=== PATIENT | female | born 2000 | race Caucasian/White ===

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

== ENCOUNTER 2020-01-26 04:28 | Inpatient (IN) | payer MEDICAID ==
[2020-01-26] MEDS ORDERED: Oxytocin/0.9 % Sodium Chloride 30 UNIT/500 ML BAG ONE (23:14)
[2020-01-26] MEDS ORDERED: Lidocaine 1% 50 ML MDV ONE (23:21)
--- NOTE | 2020-01-27 01:17 | HP ---
DATE OF : 2000 PRIMARY CARE PHYSICIAN: None PCP CHIEF COMPLAINT: Labor. HISTORY: This is a 19-year-old female. She is G1, P0. She is reportedly 38-5/7 weeks' gestation. She has had no medical care during the . She has seen a terrazzo layer helper at home. She has not had an obstetric ultrasound during the . She had spontaneous rupture of membranes at 11 p.m. on 01/25/2020. By 5 p.m. on 01/26/2020, she was 4 cm dilated and by 7 p.m. 6 cm dilated and began pushing at approximately 9:30. At 10:15 p.m., the lay person who was assisting with her care noted the baby's heartbeat to be in the 70s and recommended transfer of care to the hospital, and she arrived via ambulance. Upon arrival in Labor and Delivery, her heart tones were in the 80s, and she was allowed to push. The total time on the monitor was 8 minutes, and the nurse had assisted with vaginal delivery. Upon my arrival, the baby was 4 minutes old. PAST MEDICAL HISTORY: Negative for chronic illness. PAST SURGICAL HISTORY: None. ALLERGIES: None known. MEDICATIONS: Vitamin D, B vitamins, multivitamin, and germ seed oil. SOCIAL HISTORY: She is single, sexually active; denies the use of tobacco, alcohol, or street drugs. FAMILY HISTORY: Negative for congenital anomalies. REVIEW OF SYSTEMS: Noncontributory. PHYSICAL EXAMINATION: VITAL SIGNS: Blood pressure is 149/67, pulse is 87, and temperature is 97.2. Again, heart tones on arrival are in the 80s. Contractions every 2 minutes. GENERAL: She is alert, oriented, and in no acute distress. LUNGS: She has a normal respiratory rate. ABDOMEN: Soft, gravid, and nontender. EXTREMITIES: Show no edema. PELVIC: She does have a vaginal laceration, which is repaired; otherwise, normal external genitalia. ASSESSMENT AND PLAN: 1. No care. 2. A 38-5/7 weeks' gestation. 3. Precipitous delivery upon arrival. 4. Admit for care. ROMAN SOTELO /[id number] RACHAEL
[2020-01-27] MEDS ORDERED: Bisacodyl 10 MG Supp RECTAL PRN (04:28)
[2020-01-27] MEDS ORDERED: Ibuprofen 400 MG Tab PO PRN (04:28)
[2020-01-27] MEDS ORDERED: Benzocaine/Menthol 20%-0.5% Spray 78 GM Cannister TOP PRN (04:28)
[2020-01-27] MEDS ORDERED: Methylergonovine 0.2 MG/1 ML Amp IM PRN ×2 (04:28→05:57)
[2020-01-27] MEDS ORDERED: Lanolin 100% Cream 7 GM Tube TOP PRN (04:28)
[2020-01-27] MEDS ORDERED: Acetaminophen 500 MG Tab PO PRN ×2 (04:28)
[2020-01-27] MEDS ORDERED: Ibuprofen 800 MG Tab PO PRN (04:28)
[2020-01-27] MEDS ORDERED: Docusate Sodium 100 MG Cap PO PRN (04:28)
[2020-01-27] MEDS ORDERED: Witch Hazel Medicated Pads 40/Jar TOP PRN (04:28)
[2020-01-27] MEDS ORDERED: Tranexamic Acid 1,000 MG in Sodium Chloride 0.9% 100 ML IV PRN ×2 (04:28→05:57)
[2020-01-27] MEDS ORDERED: Lidocaine 1% 50 ML MDV INJECT PRN (05:57)
[2020-01-27] MEDS ORDERED: Misoprostol 200 MCG Tab PO PRN (05:57)
[2020-01-27] MEDS ORDERED: Carboprost Tromethamine 250 MCG/1 ML Amp IM PRN (05:57)
[2020-01-27] MEDS ORDERED: Sodium Chloride 0.9% 10 ML Syringe FLUSH PRN (05:57)
[2020-01-27] MEDS ORDERED: Sodium Chloride 0.9% 10 ML SDV IV PRN (05:57)
[2020-01-27] MEDS ORDERED: Sodium Chloride 0.9% 2.5 ML Syringe FLUSH PRN (05:57)
[2020-01-27] MEDS ORDERED: Lactated Ringers 1,000 ML IV SCH (06:00)
[2020-01-27] MEDS ORDERED: Oxytocin/0.9 % Sodium Chloride 30 UNIT/500 ML BAG IV SCH (06:00)
--- NOTE | 2020-01-27 15:53 | PCM.PNPP ---
- General Info Date of Service: 01/27/20 Functional Status: Reports: Pain Controlled, Tolerating Diet, Ambulating, Urinating - Review of Systems General: Reports: No Symptoms HEENT: Reports: No Symptoms Pulmonary: Reports: No Symptoms Cardiovascular: Reports: No Symptoms Gastrointestinal: Reports: No Symptoms Genitourinary: Reports: No Symptoms Musculoskeletal: Reports: No Symptoms Skin: Reports: No Symptoms Neurological: Reports: No Symptoms Psychiatric: Reports: No Symptoms - Patient Data Vital Signs - Most Recent: Last Vital Signs Temp 36.4 C 01/27/20 07:38 Pulse 78 01/27/20 07:38 Resp 18 01/27/20 07:38 BP 132/77 01/27/20 07:38 Pulse Ox 98 01/27/20 07:38 Weight - Most Recent: 64.864 kg Lab Results - Last 24 Hours: Laboratory Results - last 24 hr 01/27/20 01/27/20 Range/Units 06:26 06:26 WBC 20.69 H (4.0-11.0) K/uL RBC 3.92 L (4.30-5.90) M/uL Hgb 12.1 (12.0-16.0) g/dL Hct 35.4 L (36.0-46.0) % MCV 90.3 (80.0-98.0) fL MCH 30.9 (27.0-32.0) pg MCHC 34.2 (31.0-37.0) g/dL RDW Std Deviation 40.5 (28.0-62.0) fl RDW Coeff of Connor 12 (11.0-15.0) % Plt Count 226 (150-400) K/uL MPV 10.60 (7.40-12.00) fL Nucleated RBC % 0.0 /100WBC Nucleated RBCs # 0 K/uL Blood Type O POSITIVE Antibody Screen NEGATIVE Med Orders - Current: Current Medications Acetaminophen (Tylenol Extra Strength) 500 mg PO Q4H PRN PRN Reason: Pain Acetaminophen (Tylenol Extra Strength) 1,000 mg PO Q4H PRN PRN Reason: Pain Benzocaine/Menthol (Dermoplast Pain Relief 20%-0.5% [place]) 78 gm TOP ASDIRECTED PRN PRN Reason: Perineal Comfort Measure Bisacodyl (Dulcolax) 10 mg RECTAL ONETIME PRN PRN Reason: Constipation Carboprost Tromethamine (Hemabate Ds) 250 mcg IM ASDIRECTED PRN PRN Reason: Post Hemorrhage Docusate Sodium (Colace) 100 mg PO BID PRN PRN Reason: Constipation Emollient Ointment (Lansinoh Hpa) 0 gm TOP ASDIRECTED PRN PRN Reason: Sore Nipples Tranexamic Acid 1,000 mg/ (Sodium Chloride) 110 mls @ 660 mls/hr IV ONETIME PRN PRN Reason: Bleeding Tranexamic Acid 1,000 mg/ (Sodium Chloride) 110 mls @ 660 mls/hr IV ONETIME PRN PRN Reason: Bleeding Lactated Ringer's (Ringers, Lactated) 1,000 mls @ 150 mls/hr IV ASDIRECTED WOLF Oxytocin/Sodium Chloride (Oxytocin 30 Unit/500 Ml-Ns) 30 unit in 500 mls @ 500 mls/hr IV TITRATE WOLF Ibuprofen (Motrin) 400 mg PO Q4H PRN PRN Reason: Pain Ibuprofen (Motrin) 800 mg PO Q6H PRN PRN Reason: Pain Last Admin: 01/27/20 15:26 Dose: 800 mg Lidocaine HCl (Xylocaine 1%) 50 ml INJECT ONETIME PRN PRN Reason: Laceration repair Methylergonovine Maleate (Methergine) 0.2 mg IM ONETIME PRN PRN Reason: Excessive Vaginal Bleeding Methylergonovine Maleate (Methergine) 0.2 mg IM ASDIRECTED PRN PRN Reason: Post Hemorrhage Misoprostol (Cytotec) 200 mcg PO ONETIME PRN PRN Reason: Post Hemorrhage Sodium Chloride (Saline Flush) 10 ml FLUSH ASDIRECTED PRN PRN Reason: Keep Vein Open Sodium Chloride (Saline Flush) 2.5 ml FLUSH ASDIRECTED PRN PRN Reason: Keep Vein Open Sodium Chloride (Normal Saline) 10 ml IV ASDIRECTED PRN PRN Reason: IV Use Witch Shyanne (Tucks) 1 pad TOP ASDIRECTED PRN PRN Reason: comfort care Discontinued Medications Oxytocin/Sodium Chloride (Oxytocin 30 Unit/500 Ml-Ns) Confirm Administered Dose 30 unit in 500 mls @ as directed .ROUTE .[facility]-MED ONE Stop: 01/26/20 23:15 Last Admin: 01/27/20 00:42 Dose: 500 mls/hr Lidocaine HCl (Xylocaine 1%) Confirm Administered Dose 50 ml .ROUTE .STK-MED ONE Stop: 01/26/20 23:22 - Infant Interaction Infant Disposition, : [place] in Room with Family Infant Interaction: Holding Infant Infant Feeding: Breastfed ; Nursed Well Support Person: Other (see below) - Recovery Exam Fundal Tone: Firm Fundal Level: At Umbilicus Fundal Placement: Midline Lochia Amount: Scant Lochia Color: Rubra/Red Perineum Description: Intact, Minimal Bruising/Swelling Episiotomy/Laceration: None Bladder Status: Voiding Urinary Elimination: Voided - Exam General: Alert, Oriented HEENT: Pupils Equal Lungs: Normal Respiratory Effort GI/Abdominal Exam: Soft Extremities: Non-Tender, No Pedal Edema Skin: Warm, Dry, Intact Psy/Mental Status: Alert, Normal Affect, Normal Mood - Problem List & Annotations (1) Vaginal delivery SNOMED Code(s): 406432982 Code(s): O80 - ENCOUNTER FOR FULL-TERM UNCOMPLICATED DELIVERY Status: Acute Current Visit: Yes - Problem List Review Problem List Initiated/Reviewed/Updated: Yes - My Orders Last 24 Hours: My Active Orders 01/27/20 04:28 Patient Status [ADT] Routine May Shower [RC] ASDIRECTED Up ad Jesica [RC] ASDIRECTED Vital Signs [RC] PER UNIT ROUTINE Acetaminophen [Tylenol Extra Strength] 1,000 mg PO Q4H PRN Acetaminophen [Tylenol Extra Strength] 500 mg PO Q4H PRN Benzocaine/Menthol [Dermoplast Pain Relief 20%-0.5% [place]] 78 gm TOP ASDIRECTED PRN Docusate Sodium [Colace] 100 mg PO BID PRN Ibuprofen [Motrin] 400 mg PO Q4H PRN Ibuprofen [Motrin] 800 mg PO Q6H PRN Lanolin [Lansinoh HPA] See Dose Instructions TOP ASDIRECTED PRN Methylergonovine [Methergine] 0.2 mg IM ONETIME PRN Tranexamic Acid [Cyklokapron] 1,000 mg Sodium Chloride 0.9% [Normal Saline] 100 ml IV ONETIME bisacodyL [Dulcolax] 10 mg RECTAL ONETIME PRN witch Shyanne [Tucks] 1 pad TOP ASDIRECTED PRN Assess Lochia [WOMSER] Per Unit Routine Assess Uterine Involution [WOMSER] Per Unit Routine Peripheral IV Discontinue [OM.PC] Routine Resuscitation Status Routine 01/27/20 04:29 Perineal Care [OM.PC] Per Unit Routine 01/27/20 05:57 Patient Status [ADT] Routine May Shower [RC] ASDIRECTED Up ad Jesica [RC] ASDIRECTED Vital Signs [RC] PER UNIT ROUTINE Carboprost Tromethamine [Hemabate DS] 250 mcg IM ASDIRECTED PRN Lidocaine 1% [Xylocaine 1%] 50 ml INJECT ONETIME PRN Methylergonovine [Methergine] 0.2 mg IM ASDIRECTED PRN Sodium Chloride 0.9% [Normal Saline] 10 ml IV ASDIRECTED PRN Sodium Chloride 0.9% [Saline Flush] 10 ml FLUSH ASDIRECTED PRN Sodium Chloride 0.9% [Saline Flush] 2.5 ml FLUSH ASDIRECTED PRN Tranexamic Acid [Cyklokapron] 1,000 mg Sodium Chloride 0.9% [Normal Saline] 100 ml IV ONETIME miSOPROStoL [Cytotec] 200 mcg PO ONETIME PRN Peripheral IV Insertion Adult [OM.PC] Routine 01/27/20 06:00 Lactated Ringers [Ringers, Lactated] 1,000 ml IV ASDIRECTED Oxytocin/0.9 % Sodium Chloride [Oxytocin 30 Unit/500 ML-NS] 30 unit in 500 ml IV TITRATE 01/27/20 06:26 RPR (SYPHILIS SERO) W/ RFLX [REF] Routine 01/27/20 Breakfast Regular Diet [DIET] Regular Diet [DIET] 01/28/20 05:11 HEMOGLOBIN/HEMATOCRIT,HH [HEME] Timed - Assessment Assessment:: PPD#0 after , stable minimal lochia, well. - Plan Plan:: Continue care, baby under observation for GBS status unknown.
--- NOTE | 2020-01-28 08:28 | PCM.PNPP ---
- General Info Date of Service: 01/28/20 Subjective Update: Patient doing well. Passing flatus. going well. Minimal lochia. Functional Status: Reports: Pain Controlled, Tolerating Diet, Ambulating, Urinating - Review of Systems General: Reports: No Symptoms HEENT: Reports: No Symptoms Pulmonary: Reports: No Symptoms Cardiovascular: Reports: No Symptoms Gastrointestinal: Reports: No Symptoms Genitourinary: Reports: No Symptoms Musculoskeletal: Reports: No Symptoms Skin: Reports: No Symptoms Neurological: Reports: No Symptoms Psychiatric: Reports: No Symptoms - Patient Data Vital Signs - Most Recent: Last Vital Signs Temp 36.6 C 01/28/20 05:10 Pulse 86 01/28/20 05:10 Resp 16 01/28/20 05:10 BP 117/70 01/28/20 05:10 Pulse Ox 95 01/28/20 05:10 Weight - Most Recent: 64.864 kg Lab Results - Last 24 Hours: Laboratory Results - last 24 hr 01/28/20 Range/Units 05:30 Hgb 12.0 (12.0-16.0) g/dL Hct 35.5 L (36.0-46.0) % Med Orders - Current: Current Medications Acetaminophen (Tylenol Extra Strength) 500 mg PO Q4H PRN PRN Reason: Pain Acetaminophen (Tylenol Extra Strength) 1,000 mg PO Q4H PRN PRN Reason: Pain Benzocaine/Menthol (Dermoplast Pain Relief 20%-0.5% [place]) 78 gm TOP ASDIRECTED PRN PRN Reason: Perineal Comfort Measure Bisacodyl (Dulcolax) 10 mg RECTAL ONETIME PRN PRN Reason: Constipation Carboprost Tromethamine (Hemabate Ds) 250 mcg IM ASDIRECTED PRN PRN Reason: Post Hemorrhage Docusate Sodium (Colace) 100 mg PO BID PRN PRN Reason: Constipation Last Admin: 01/27/20 21:23 Dose: 100 mg Emollient Ointment (Lansinoh Hpa) 0 gm TOP ASDIRECTED PRN PRN Reason: Sore Nipples Tranexamic Acid 1,000 mg/ (Sodium Chloride) 110 mls @ 660 mls/hr IV ONETIME PRN PRN Reason: Bleeding Tranexamic Acid 1,000 mg/ (Sodium Chloride) 110 mls @ 660 mls/hr IV ONETIME PRN PRN Reason: Bleeding Lactated Ringer's (Ringers, Lactated) 1,000 mls @ 150 mls/hr IV ASDIRECTED WOLF Oxytocin/Sodium Chloride (Oxytocin 30 Unit/500 Ml-Ns) 30 unit in 500 mls @ 500 mls/hr IV TITRATE WOLF Ibuprofen (Motrin) 400 mg PO Q4H PRN PRN Reason: Pain Ibuprofen (Motrin) 800 mg PO Q6H PRN PRN Reason: Pain Last Admin: 01/27/20 15:26 Dose: 800 mg Lidocaine HCl (Xylocaine 1%) 50 ml INJECT ONETIME PRN PRN Reason: Laceration repair Methylergonovine Maleate (Methergine) 0.2 mg IM ONETIME PRN PRN Reason: Excessive Vaginal Bleeding Methylergonovine Maleate (Methergine) 0.2 mg IM ASDIRECTED PRN PRN Reason: Post Hemorrhage Misoprostol (Cytotec) 200 mcg PO ONETIME PRN PRN Reason: Post Hemorrhage Sodium Chloride (Saline Flush) 10 ml FLUSH ASDIRECTED PRN PRN Reason: Keep Vein Open Sodium Chloride (Saline Flush) 2.5 ml FLUSH ASDIRECTED PRN PRN Reason: Keep Vein Open Sodium Chloride (Normal Saline) 10 ml IV ASDIRECTED PRN PRN Reason: IV Use Witch Shyanne (Tucks) 1 pad TOP ASDIRECTED PRN PRN Reason: comfort care Discontinued Medications Oxytocin/Sodium Chloride (Oxytocin 30 Unit/500 Ml-Ns) Confirm Administered Dose 30 unit in 500 mls @ as directed .ROUTE .[facility] ONE Stop: 01/26/20 23:15 Last Admin: 01/27/20 00:42 Dose: 500 mls/hr Lidocaine HCl (Xylocaine 1%) Confirm Administered Dose 50 ml .ROUTE .STK-MED ONE Stop: 01/26/20 23:22 - Interaction Disposition, : [place] in Room with Family Interaction: Holding Feeding: Breastfed Infant; Nursed Well Support Person: Other (see below) - Recovery Exam Fundal Tone: Firm Fundal Level: 1 Fingerbreadths Below Umbilicus Fundal Placement: Midline Lochia Amount: Scant Lochia Color: Rubra/Red Bladder Status: Voiding Urinary Elimination: Voided - Exam General: Alert, Oriented Neck: Supple Lungs: Clear to Auscultation, Normal Respiratory Effort Cardiovascular: Regular Rate, Regular Rhythm GI/Abdominal Exam: Soft, Non-Tender Extremities: Non-Tender Skin: Warm, Dry, Intact Neurological: No New Focal Deficit Psy/Mental Status: Alert, Normal Affect, Normal Mood - Problem List & Annotations (1) Vaginal delivery SNOMED Code(s): 963787899 Code(s): O80 - ENCOUNTER FOR FULL-TERM UNCOMPLICATED DELIVERY Status: Acute Current Visit: Yes - Problem List Review Problem List Initiated/Reviewed/Updated: Yes - My Orders Last 24 Hours: My Active Orders 01/28/20 08:26 Ready for Discharge [RC] PER UNIT ROUTINE - Assessment Assessment:: PPD#1 after , stable minimal lochia, well. - Plan Plan:: Patient desires discharge home today if infant cleared by steel heater. Reviewed discharge instructions, all questions answered.
[2020-01-28 09:48] VITALS: BP 120/66; PULSE 78
--- NOTE | 2020-01-28 10:01 | OR ---
SURGEON: Gilda Tan M.D. DATE OF PROCEDURE: 01/27/2020 PREOPERATIVE DIAGNOSES: 1. A 38-5/7 weeks' gestation. 2. Active spontaneous labor. POSTOPERATIVE DIAGNOSES: 1. A 38-5/7 weeks' gestation. 2. Active spontaneous labor. PROCEDURES: 1. Precipitous delivery. 2. Delivery of the placenta. 3. Repair of a vaginal laceration. PRIMARY SURGEON: Gilda Tan M.D. ANESTHESIA: Local. ESTIMATED BLOOD LOSS: Less than 200 mL. FINDINGS: A liveborn female, scores 8 and 9, weight is pending. Placenta, spontaneous, Schultze, intact, with 3 vessels. A vaginal laceration was repaired. COMPLICATIONS: None known. DISPOSITION: Mother and baby are in the LDR in good condition. BRIEF HISTORY: This is a 19-year-old female, G1, P0. She has had no medical care during the . She was assisted with care with a lay person, who was assisting with her delivery, however, due to decreased heart tones during pushing, recommended transfer to the hospital. She arrived via ambulance. heart tones were in the 80s, and I was notified upon arrival, and I did arrive within 10 minutes of being called; however, the baby was 4 minutes old. Upon arrival, the nurse had successfully assisted with a vaginal delivery. The was on the mother's abdomen. The cord was intact, but it had ceased to pulsate. DESCRIPTION OF PROCEDURE: After obtaining consent for care verbally from the patient and her partner, I did ask if they consented to me clamping the cord, and they did, and I doubly clamped the cord. The father cut the cord, and the was handed to the mother in the presence of the nurse attending the delivery. The was a liveborn female, scores of 8 and 9, weight is pending. The baby was pink and vigorous; therefore, cord blood gases were not collected. Cord blood was collected for routine cord blood sampling, however. Pitocin was initiated after delivery of the to assist with delivery of the placenta, which was delivered spontaneously, Schultze, intact, with 3 vessels. Upon inspection of the pelvis and perineum, there were no periurethral, vaginal sidewall, cervical, rectal, or perineal lacerations. There was a vaginal laceration approximately 3 cm long that was repaired using 10 mL of 1% lidocaine for analgesia. 3-0 Vicryl was utilized in a running locked fashion to reapproximate the tissue. Final sponge, needle, and instrument counts were correct. There were no complications. Mother and baby are in LDR in good condition. ROMAN SOTELO /[id number]
== END 2020-01-28 14:58 | disposition home or self-care (01) | DRG 807 ==
LOC: MW.OB 04:28 → OBSVTOIN 01-27 04:28
PROVIDERS: ADMIT Obstetrics & Gynecology; ATTEND Obstetrics & Gynecology
PROC: 10E0XZZ Delivery of Products of Conception, External Approach (ICD-10-PCS; principal; 2020-01-27)
PROC: 0UQGXZZ Repair Vagina, External Approach (ICD-10-PCS; 2020-01-27)
DX: O62.3 Precipitate labor (principal); Z37.0 Single live birth; Z3A.38 38 weeks gestation of pregnancy; O70.0 First degree perineal laceration during delivery
CPT/HCPCS: 36415; 59409; 85014; 85018; 85027; 86592; 86593; 86850; 86900; 86901; A9270-GY; J2001; J2590